=== PATIENT | male | born 1975 | race Caucasian/White ===

== ENCOUNTER 2020-07-05 03:51 | Emergency (ER) | payer BC ==
[2020-07-05 04:07] VITALS: TEMP 97.9
[2020-07-05] MEDS ORDERED: HYDROmorphone 1 MG/ML 1 ML SYRINGE IVP STA (04:20)
[2020-07-05] MEDS ORDERED: ETOMIDATE 2 MG/ML 10 ML VIAL IVP STA (04:20)
--- NOTE | 2020-07-05 04:22 | ED ---
Upper Extremity HPI - General Chief Complaint: Extremity Injury, Upper Stated Complaint: L shoulder injury Time Seen by Provider: 07/05/20 04:05 Source: patient, family Mode of arrival: ambulatory Limitations: no limitations - History of Present Illness Initial Comments: This patient is a 45-year-old man who presents to be evaluated for what he suspects is a shoulder dislocation. The patient states she has had 6 prior shoulder dislocations. He states that he was in bed and then turned she experience pain not able to move the left arm without worse pain. He states that he was previously able to back him but could not tonight. He did apply a shoulder immobilizer that he had at home and then came in for evaluation. MD Complaint: Injury to:: left, shoulder -: minutes(s) Other Injuries: none Handedness: right Place: home Improves With: immobilization Worsens With: movement of extremity Context: other Associated Symptoms: denies other symptoms Treatments Prior to Arrival: splint - Related Data Allergies Allergy/AdvReac Type Severity Reaction Status Date / Time No Known Allergies Allergy Verified 07/05/20 04:07 Review of Systems ROS Statement: Those systems with pertinent positive or pertinent negative responses have been documented in the HPI. ROS Other: All systems not noted in ROS Statement are negative. Constitutional: Denies: fever Respiratory: Denies: cough, dyspnea Cardiovascular: Denies: chest pain, palpitations Gastrointestinal: Denies: abdominal pain Musculoskeletal: Reports: as per HPI, arthralgia. Denies: back pain Neurological: Reports: paresthesias. Denies: weakness, numbness Past Medical History Past Medical History: No Reported History History of Any Multi-Drug Resistant Organisms: None Reported Past Surgical History: No Surgical Hx Reported Past Psychological History: No Psychological Hx Reported Smoking Status: Never smoker Past Alcohol Use History: Rare Past Drug Use History: None Reported General Exam Limitations: no limitations General appearance: alert, in no apparent distress Head exam: Present: atraumatic, normocephalic ENT exam: Present: normal oropharynx Neck exam: Present: full ROM. Absent: tenderness Respiratory exam: Present: normal lung sounds bilaterally. Absent: respiratory distress, wheezes, rales, rhonchi, stridor Cardiovascular Exam: Present: normal rhythm, bradycardia, normal heart sounds. Absent: systolic murmur, diastolic murmur, rubs, gallop GI/Abdominal exam: Present: soft. Absent: distended, tenderness, guarding Left Shoulder Exam: Present: tenderness, dislocation. Absent: full ROM, ecchymosis, crepitus Upper Arm exam: Present: normal inspection. Absent: tenderness, deformity Elbow exam: Present: normal inspection, full ROM. Absent: tenderness, swelling, deformity, tenderness over radial head Forearm Wrist exam: Present: normal inspection, full ROM Hand Wrist exam: Present: normal inspection, full ROM Neuro motor exam: Present: wrist extension intact, thumb opposition intact, thumb IP flexion intact, thumb adduction intact, fingers 2-5 abduction intact Vascular: Present: normal capillary refill, radial pulse (Normal) Neurological exam: Present: alert. Absent: motor sensory deficit Skin exam: Present: warm, dry, intact, normal color. Absent: rash Course Vital Signs 07/05/20 07/05/20 07/05/20 04:04 04:50 04:55 Temperature 97.9 F Pulse Rate 66 40 L 42 L Respiratory 20 16 12 Rate Blood Pressure 160/88 150/98 153/94 O2 Sat by Pulse 98 99 100 Oximetry 07/05/20 05:00 Temperature Pulse Rate 42 L Respiratory 16 Rate Blood Pressure 141/90 O2 Sat by Pulse 100 Oximetry Procedures - Orthopedic Joint Reduction Joint #1 Consent Obtained: written consent Side: left Joint Reduction Location: shoulder Analgesia: procedural sedation Shoulder Technique Used (if applicable): external rotation Post-Reduction Neuro Exam: intact Post-Reduction Vascular Exam: intact Post Reduction X-Ray Obtained: Yes Post Reduction X-Ray Results: reduced Splint Applied: Yes Patient Tolerated Procedure: well, no complications - Procedural Sedation Procedural Sedation Start Time: 04:50 Procedural Sedation Stop Time: 05:05 Indications: fracture/dislocation reduction ASA Class: I Mallampati Airway Score: 3 Preparation: shipping services sales representative applied, pulse oximeter, capnometry used, supplemental O2 applied, suction/airway equipment at bedside, IV secured IV Etomidate Dose (mgs): 14 Complications: none Patient Tolerated Procedure: well, no complications Disposition Clinical Impression: Shoulder dislocation Disposition: HOME SELF-CARE Condition: Good Instructions (If sedation given, give patient instructions): Shoulder Dislocation (ED), Moderate Sedation (ED) Is patient prescribed a controlled substance at d/c from ED?: No Referrals: None,Stated [Primary Care Provider] - 1-2 days Jason Perez MD [STAFF PHYSICIAN] - 1-2 days
--- NOTE | 2020-07-05 04:23 | XR ---
EXAMINATION TYPE: XR shoulder complete LT DATE OF EXAM: 07/05/2020 COMPARISON: NONE HISTORY: Shoulder pain TECHNIQUE: 3 views FINDINGS: There is anterior dislocation of the glenohumeral joint. I see no fracture. The AC joint is intact. IMPRESSION: Anterior shoulder joint dislocation.
--- NOTE | 2020-07-05 05:27 | XR ---
EXAMINATION TYPE: XR shoulder limited LT DATE OF EXAM: 07/05/2020 COMPARISON: NONE HISTORY: Post reduction TECHNIQUE: Single view FINDINGS: There is anatomic reduction of the glenohumeral joint. I see no fracture. IMPRESSION: Anatomic reduction. No complicating process seen.
[2020-07-05 06:07] VITALS: BP 122/83; PULSE 44; RESP 18
== END 2020-07-05 06:12 | disposition home or self-care (01) ==
LOC: EC 03:51
DX: S43.005A Unspecified dislocation of left shoulder joint, initial encounter (principal); X58.XXXA Exposure to other specified factors, initial encounter
CPT/HCPCS: 23650; 96374; 99152; 99283

== ENCOUNTER 2020-07-08 21:38 | Emergency (ER) | payer BC ==
[2020-07-08 21:54] VITALS: TEMP 98.4
[2020-07-08] MEDS ORDERED: HYDROmorphone 0.5 MG/0.5 ML SYRINGE IVP STA (22:22)
--- NOTE | 2020-07-08 22:38 | XR ---
EXAMINATION TYPE: XR shoulder limited LT DATE OF EXAM: 07/08/2020 COMPARISON: 07/05/2020 HISTORY: Dislocation. Pain TECHNIQUE: FINDINGS: 2 views were obtained and show anterior dislocation of the glenohumeral joint. I see no fra cture line. IMPRESSION: Anterior shoulder joint dislocation.
[2020-07-08] MEDS ORDERED: SODIUM CHLORIDE 0.9% 1,000 ML IV STA (22:51)
[2020-07-08] MEDS ORDERED: PROPOFOL 10 MG/ML 20 ML VIAL IV STA (22:51)
--- NOTE | 2020-07-08 23:34 | XR ---
EXAMINATION TYPE: XR shoulder limited LT DATE OF EXAM: 07/08/2020 COMPARISON: Today HISTORY: Post reduction A single view appears to show anatomic reduction of the glenohumeral joint. I see no fracture line. IMPRESSION: Anatomic reduction. No fracture seen.
--- NOTE | 2020-07-08 23:40 | ED ---
Upper Extremity HPI - General Source: patient Mode of arrival: ambulatory Limitations: no limitations <Mar Gilliam - Last Filed: 07/09/20 01:20> <Rosanna Ng - Last Filed: 07/09/20 08:01> - General Chief Complaint: Extremity Injury, Upper Stated Complaint: Revisit-Dislocation of L Shoulder Time Seen by Provider: 07/08/20 22:05 - History of Present Illness Initial Comments: 45-year-old male presents today for chief complaint of left shoulder pain dislocation. Patient states he has dislocated his shoulder 12 8 times throughout his life last time being approximately 4 days ago patient states that he was on the ball today when he went home to go to bed he states that he dislocated his shoulder when lying down. Patient denies any direct falls or trauma. Patient denies additional complaints patient has a numbness tingling or loss of sensation of the extremity. Remaining review of systems negative patient applied sling and presented to the ER (Mar Gilliam) - Related Data Allergies Allergy/AdvReac Type Severity Reaction Status Date / Time No Known Allergies Allergy Verified 07/08/20 21:54 Review of Systems ROS Other: All systems not noted in ROS Statement are negative. <Mar Gilliam - Last Filed: 07/09/20 01:20> ROS Other: All systems not noted in ROS Statement are negative. <Rosanna Ng - Last Filed: 07/09/20 08:01> ROS Statement: Those systems with pertinent positive or pertinent negative responses have been documented in the HPI. Past Medical History Past Medical History: No Reported History Additional Past Medical History / Comment(s): multiple dislocated lt shoulder History of Any Multi-Drug Resistant Organisms: None Reported Past Surgical History: No Surgical Hx Reported Past Psychological History: No Psychological Hx Reported Smoking Status: Never smoker Past Alcohol Use History: Rare Past Drug Use History: None Reported <Mar Gilliam - Last Filed: 07/09/20 01:20> General Exam Limitations: no limitations <Mar Gilliam - Last Filed: 07/09/20 01:20> - General Exam Comments Initial Comments: General: The patient is awake and alert, in no distress Eye: +3 mm pupils are equal, round and reactive to light, extra-ocular movements are intact. No nystagmus. There is normal conjunctiva bilaterally. No signs of icterus. Cardiovascular: There is a regular rate and rhythm. No murmur, rub or gallop is appreciated. Respiratory: Lungs are clear to auscultation, respirations are non-labored, breath sounds are equal. No wheezes, stridor, rales, or rhonchi. Gastrointestinal: Soft, non-distended, non-tender abdomen without masses or organomegaly noted. There is no rebound or guarding present. Musculoskeletal: Obvious anterior deformity of gross examination. Refuses range of motion shoulder secondary to pain to range of motion left elbow and wrist no evidence of wristdrop. Strength 5/5 distal to elbow. Sensation intact. Radial pulses equal bilaterally 2+. Neurological: A&O x 3. CN II-XII intact grossly, There are no obvious motor or sensory deficits. Coordination appears grossly intact. Speech is normal. Skin: Skin is warm and dry and no rashes or lesions are noted. Psychiatric: Cooperative, appropriate mood & affect, normal judgment. (Mar Gilliam) Course Vital Signs 07/08/20 07/08/20 07/08/20 21:52 23:10 23:13 Temperature 98.4 F Pulse Rate 80 72 72 Respiratory 20 16 16 Rate Blood Pressure 135/80 135/114 135/114 O2 Sat by Pulse 99 93 L 93 L Oximetry 07/08/20 07/08/20 07/08/20 23:19 23:24 23:30 Temperature Pulse Rate 70 65 52 L Respiratory 12 12 12 Rate Blood Pressure 126/86 125/91 129/89 O2 Sat by Pulse 98 99 99 Oximetry 07/08/20 07/09/20 07/09/20 23:45 00:00 00:15 Temperature Pulse Rate 60 79 73 Respiratory 16 16 16 Rate Blood Pressure 135/48 138/98 131/99 O2 Sat by Pulse 92 L 92 L 94 L Oximetry Procedures - [place] Protocol (Time Out) Procedure Performed:: relocation of left shoulder Performing Provider: Rosanna Ng Nurse: Viviana Horowitz Patient Identification (2 identifiers required): Chart, Verbal, Arm Band, Name, Birthdate Patient/Legal Chrome Worker has Confirmed: Identity, Site, Procedure, Consent Site: left shoulder Site Marked: Yes Site Verified With Patient/Guardian: Yes Final Confirmation: Site - Orthopedic Joint Reduction Joint #1 Consent Obtained: verbal consent Side: left Joint Reduction Location: shoulder Analgesia: procedural sedation Shoulder Technique Used (if applicable): traction/counter-traction, Milch Post-Reduction Neuro Exam: intact Post-Reduction Vascular Exam: intact Post Reduction X-Ray Obtained: Yes Post Reduction X-Ray Results: reduced Splint Applied: Yes (sling) Patient Tolerated Procedure: well, no complications <Mar Gilliam - Last Filed: 07/09/20 01:20> - Procedural Sedation Procedural Sedation Start Time: 23:50 Procedural Sedation Stop Time: 00:20 Indications: fracture/dislocation reduction ASA Class: I Mallampati Airway Score: 1 Preparation: charge master coordinator applied, pulse oximeter, capnometry used, supplemental O2 applied, reversal agents at bedside, suction/airway equipment at bedside, IV secured IV Propofol Dose (mgs): 130 Complications: none Patient Tolerated Procedure: well, no complications <Rosanna Ng - Last Filed: 07/09/20 08:01> Medical Decision Making <Mar Gilliam - Last Filed: 07/09/20 01:20> - Medical Decision Making 45-year-old male presenting for left shoulder dislocation. X-ray revealed dislocation. After procedural sedation patient shoulder anatomically reduced, pain controlled. Patient placed in sling. Patient is neurovascularly intact both prior to and after reduction. Patient evaluated and sedation was performed by attending Dr. Ng. (Mar Gilliam) Disposition Is patient prescribed a controlled substance at d/c from ED?: No Time of Disposition: 23:40 <Mar Gilliam - Last Filed: 07/09/20 01:20> <Rosanna Ng - Last Filed: 07/09/20 08:01> Clinical Impression: Recurrent dislocation, left shoulder Disposition: HOME SELF-CARE Condition: Good Instructions (If sedation given, give patient instructions): Shoulder Dislocation (ED), Moderate Sedation (ED) Additional Instructions: Please use medication as discussed. Please follow[facility]up with [facility] in the next 2-3 days Please return to emergency room if the symptoms increase or worsen or for any other concerns. Referrals: None,Stated [Primary Care Provider] - 1-2 days Harry Hill DO [Medical Doctor] - 1-2 days
[2020-07-09 00:04] VITALS: RESP 16
[2020-07-09 00:21] VITALS: BP 131/99; PULSE 73
== END 2020-07-09 00:23 | disposition home or self-care (01) ==
LOC: EC 21:38
DX: M24.412 Recurrent dislocation, left shoulder (principal)
CPT/HCPCS: 99283; 23650; 99152; 99153; 73020; 96374; 96375; 96361; J2704; J1170

== ENCOUNTER 2021-01-11 19:52 | Emergency (ER) | payer BC ==
[2021-01-11 19:57] VITALS: PULSE 62; RESP 18; TEMP 98.4
--- NOTE | 2021-01-11 20:36 | CT ---
EXAMINATION TYPE: CT brain wo con DATE OF EXAM: 01/11/2021 COMPARISON: None available. HISTORY: headaches and dizziness CT DLP: 1086.4 mGycm. Automated Exposure Control for Dose Reduction was Utilized. TECHNIQUE: CT scan of the head is performed without contrast. FINDINGS: There is no acute intracranial hemorrhage, mass effect, or midline shift identified. The ventricles and sulci are within normal limits in size. The globes are intact and the visualized sin uses are clear. IMPRESSION: No acute intracranial hemorrhage, mass effect, or midline shift is seen.
[2021-01-11 21:10] VITALS: BP 146/99
--- NOTE | 2021-01-11 21:13 | ED ---
Headache HPI - General Chief Complaint: Headache Stated Complaint: Dizziness Time Seen by Provider: 01/11/21 20:02 Mode of arrival: ambulatory Limitations: no limitations - History of Present Illness Initial Comments: This 45-year-old male presents with a complaint of a headache. It initially started 3 weeks ago and has been intermittent. He states that it is primarily in the right posterior region. It came on gradually. He initially had some slight phonophobia and photophobia. He relates that it is at the right suboccipital region. There is no previous history of headaches or migraines. He states that his blood pressures been slightly elevated at the urgent care prior to arrival. He states that he's had slight dizziness intermittently over the last couple of weeks as well. He denies any other complaints or modifying factors. - Related Data Allergies Allergy/AdvReac Type Severity Reaction Status Date / Time No Known Allergies Allergy Verified 01/11/21 19:57 Review of Systems ROS Statement: Those systems with pertinent positive or pertinent negative responses have been documented in the HPI. ROS Other: All systems not noted in ROS Statement are negative. Past Medical History Past Medical History: No Reported History Additional Past Medical History / Comment(s): multiple dislocated lt shoulder History of Any Multi-Drug Resistant Organisms: None Reported Past Surgical History: No Surgical Hx Reported Past Psychological History: No Psychological Hx Reported Smoking Status: Light tobacco smoker Past Alcohol Use History: Rare Past Drug Use History: None Reported General Exam - General Exam Comments Initial Comments: Constitutional: Alert and oriented, no apparent distress Vitals: Reviewed, please see nursing notes HEENT: No gross trauma identified, trachea midline, no respiratory distress Neck: No tenderness, good range of motion Heart: Regular rate and rhythm without murmur Lungs: Clear to auscultation bilaterally, no wheezing rhonchi or rales Abdomen: No tenderness or peritoneal signs noted, nondistended Back: No tenderness Neurologic: No gross sensory or motor deficits identified Integumentary: No rash or change in pigmentation Psychiatric: Alert and oriented, appropriate mood and affect Limitations: no limitations Course Vital Signs 01/11/21 01/11/21 19:55 20:45 Temperature 98.4 F Pulse Rate 62 Respiratory 18 Rate Blood Pressure 207/120 158/109 O2 Sat by Pulse 97 Oximetry Medical Decision Making - Medical Decision Making The patient was seen and examined. A computed tomography scan of the brain was done and does not show any acute abnormalities per radiology. He is not currently having any pain. It is not felt as though he requires any medication at this time. His blood pressure initially was high but he apparently was anxious coming in and it has come down significantly since that time. It is not felt as though any treatment is necessary in this regard at this time. He is instructed to do a five-day blood pressure recheck at home and follow-up with his primary care physician in this regard. If his symptoms do persist he is also instructed to follow-up with a neurologist. He potentially may need a rate about occipital block and his symptoms reoccur or worsen as he may have a suboccipital neuralgia. Return parameters are discussed. Disposition Clinical Impression: Hypertension, Headache Disposition: HOME SELF-CARE Condition: Good Instructions (If sedation given, give patient instructions): Acute Headache (ED), Hypertension (ED) Additional Instructions: Please take Tylenol and/or Motrin if needed for pain. Is patient prescribed a controlled substance at d/c from ED?: No Referrals: None,Stated [Primary Care Provider] - 1-2 days Time of Disposition: 21:12
== END 2021-01-11 21:18 | disposition home or self-care (01) ==
LOC: EC 19:52
DX: I10 Essential (primary) hypertension (principal); R51.9 Headache, unspecified; R42 Dizziness and giddiness; F17.210 Nicotine dependence, cigarettes, uncomplicated
CPT/HCPCS: 70450; 99284

== ENCOUNTER → 2021-08-12 | Outpatient (CLI) | payer BC ==
--- NOTE | 2021-08-12 12:00 | XR ---
EXAMINATION TYPE: XR lumbar spine 2 or 3V DATE OF EXAM: 08/12/2021 COMPARISON: None HISTORY: Spinal stenosis TECHNIQUE: 3 view lumbar spine FINDINGS: There are 5 lumbar-type vertebral bodies. Pedicles are intact. Disc heights are preserved. Vertebral body heights are preserved. Alignment is normal. IMPRESSION: 1. Normal three-view lumbar spine
== END | disposition home or self-care (01) ==
LOC: RADXRMAIN 11:40
PROVIDERS: ATTEND Family Medicine
DX: M48.061 Spinal stenosis, lumbar region without neurogenic claudication (principal)
CPT/HCPCS: 72100

== ENCOUNTER 2023-07-20 19:44 | Emergency (ER) | payer BC ==
[2023-07-20 19:57] VITALS: BP 150/96; PULSE 63; RESP 18; TEMP 97.9
[2023-07-20] MEDS ORDERED: PROPARACAINE 0.5% OPHTH DROPS 15 ML BTL LEFT EYE STA (20:28)
[2023-07-20] MEDS ORDERED: FLUORESCEIN STRIPS 1 MG STRIP LEFT EYE ONE (20:28)
[2023-07-20] MEDS ORDERED: TOBRAMYCIN 0.3% OPHTH DROPS 5 ML BTL LEFT EYE STA (22:08)
--- NOTE | 2023-07-20 22:09 | ED ---
Eye Problem HPI - General Source: patient Mode of arrival: ambulatory Limitations: no limitations <Johny Wright - Last Filed: 07/20/23 22:08> - General Source: patient Mode of arrival: ambulatory Limitations: no limitations <Lizzy Young - Last Filed: 07/20/23 23:23> - General Chief complaint: Eye Problems Stated complaint: Foreign object in left eye Time Seen by Provider: 07/20/23 20:15 - History of Present Illness Initial comments: 48-year-old male presents emergency department chief complaint of left eye pain. He states that he was seen at urgent care earlier today and was told that he had a foreign body in his eye. They attempted removal of cotton swab at or unsuccessful. They advised him to come to the emergency department or follow-up with ophthalmology tomorrow. He states that he believes that he has a foreign body in his eye yesterday while he was working on his vehicle. He states that he could be metal but he is unsure. (Lizzy Young) - Related Data Allergies Allergy/AdvReac Type Severity Reaction Status Date / Time No Known Allergies Allergy Verified 07/20/23 19:57 Review of Systems ROS Other: All systems not noted in ROS Statement are negative. <Johny Wright - Last Filed: 07/20/23 22:08> ROS Other: All systems not noted in ROS Statement are negative. <Lizzy Young - Last Filed: 07/20/23 23:23> ROS Statement: Those systems with pertinent positive or pertinent negative responses have been documented in the HPI. Past Medical History Past Medical History: Hypertension Additional Past Medical History / Comment(s): multiple dislocated lt shoulder History of Any Multi-Drug Resistant Organisms: None Reported Past Surgical History: No Surgical Hx Reported Past Psychological History: No Psychological Hx Reported Smoking Status: Light tobacco smoker Past Alcohol Use History: Rare Past Drug Use History: None Reported <Johny Wright - Last Filed: 07/20/23 22:08> General Exam Limitations: no limitations <Johny Wright - Last Filed: 07/20/23 22:08> Limitations: no limitations General appearance: alert, in no apparent distress Head exam: Present: atraumatic, normocephalic, normal inspection Eye exam: Present: PERRL, EOMI, conjunctival injection (Left), other (Visible foreign body over the left cornea). Absent: nystagmus, periorbital swelling, periorbital tenderness ENT exam: Present: normal exam, mucous membranes moist Neck exam: Present: normal inspection. Absent: tenderness, meningismus, lymphadenopathy Respiratory exam: Present: normal lung sounds bilaterally. Absent: respiratory distress, wheezes, rales, rhonchi, stridor Cardiovascular Exam: Present: regular rate, normal rhythm, normal heart sounds. Absent: systolic murmur, diastolic murmur, rubs, gallop, clicks Extremities exam: Present: normal inspection, full ROM, normal capillary refill. Absent: tenderness, pedal edema, joint swelling, calf tenderness Back exam: Present: normal inspection Neurological exam: Present: alert, oriented X3 Psychiatric exam: Present: normal affect, normal mood Skin exam: Present: warm, dry, intact, normal color. Absent: rash <Lizzy Young - Last Filed: 07/20/23 23:23> Course Vital Signs 07/20/23 19:55 Temperature 97.9 F Pulse Rate 63 Respiratory 18 Rate Blood Pressure 150/96 O2 Sat by Pulse 98 Oximetry Medical Decision Making <Lizzy Young - Last Filed: 07/20/23 23:23> - Medical Decision Making Was pt. sent in by a medical professional or institution (CARLYN Kumar, RE[employer] [employer]ISON, urgent care, hospital, or half-way...) When possible be specific @ -Patient was sent in by urgent care Did you speak to anyone other than the patient for history (EMS, parent, family, police, friend...)? What history was obtained from this source @ -No Did you review nursing and triage notes (agree or disagree)? Why? @ -I reviewed and agree with nursing and triage notes Were old charts reviewed (outside hosp., previous admission, EMS record, old EKG, old radiological studies, urgent care reports/EKG's, half-way records)? Report findings @ -No old charts were reviewed Differential Diagnosis (chest pain, altered mental status, abdominal pain women, abdominal pain men, vaginal bleeding, weakness, fever, dyspnea, syncope, headache, dizziness, GI bleed, back pain, seizure, CVA, palpatations, mental health, musculoskeletal)? @ -Corneal foreign body, corneal abrasion, conjunctivitis, iritis, this list is not all-inclusive EKG interpreted by me (3pts min.). @ -None X-rays interpreted by me (1pt min.). @ -None done CT interpreted by me (1pt min.). @ -None done U/S interpreted by me (1pt. min.). @ -None done What testing was considered but not performed or refused? (CT, X-rays, U/S, labs)? Why? @ -None What meds were considered but not given or refused? Why? @ -None Did you discuss the management of the patient with other professionals (professionals i.e. Dr., PA, REVENUE LIAISON, lab, RT, psych nurse, social media assistant, smeller, teacher, custody officer, director case management)? Give summary @ -No Was smoking cessation discussed for >3mins.? @ -No Was critical care preformed (if so, how long)? @ -No Were there social determinants of health that impacted care today? How? (Homelessness, low income, unemployed, alcoholism, drug addiction, transportation, low edu. Level, literacy, decrease access to med. care, long-term, rehab)? @ -No Was there de-escalation of care discussed even if they declined (Discuss DNR or withdrawal of care, Hospice)? DNR status @ -No What co-morbidities impacted this encounter? (DM, HTN, Smoking, COPD, CAD, Cancer, CVA, ARF, Chemo, Hep., AIDS, mental health diagnosis, sleep apnea, morbid obesity)? @ -None Was patient admitted / discharged? Hospital course, mention meds given and route, prescriptions, significant lab abnormalities, going to OR and other pertinent info. @ -discharged. Patient presented to emergency department chief complaint of left eye foreign body that occurred yesterday. He was evaluated at urgent care who sent him to the emergency department for further evaluation. Fluorescein staining was performed and there is a visible foreign body over the cornea of the left eye. Removal was attempted with a cotton swab. Patient was given tobr amycin eyedrops to be used 4 times a day and Patient will follow up with Ophthalmology tomorrow. Patient stable at discharge. Case discussed my attending, Dr. Wright, who evaluated the patient and attempted foreign body removal. Undiagnosed new problem with uncertain prognosis? @ -No Drug Therapy requiring intensive monitoring for toxicity (Heparin, Nitro, Insulin, Cardizem)? @ -No Were any procedures done? @ -No Diagnosis/symptom? @ -corneal foreign body Acute, or Chronic, or Acute on Chronic? @ -acute Uncomplicated (without systemic symptoms) or Complicated (systemic symptoms)? @ -uncomplicated Side effects of treatment? @ -No Exacerbation, Progression, or Severe Exacerbation? @ -No Poses a threat to life or bodily function? How? (Chest pain, [place], OR, pneumonia, PE, COPD, DKA, ARF, appy, cholecystitis, CVA, Diverticulitis, Homicidal, Suicidal, threat to staff... and all critical care pts) @ -No (Lizzy Young) Disposition Is patient prescribed a controlled substance at d/c from ED?: No <Johny Wright - Last Filed: 07/20/23 22:08> Is patient prescribed a controlled substance at d/c from ED?: No <Lizzy Young - Last Filed: 07/20/23 23:23> Clinical Impression: Corneal abrasion, Eye foreign body Disposition: HOME SELF-CARE Condition: Fair Additional Instructions: Please instill 2 drops every 6 hours for 5 days. Follow up with ophthalmology. Return to the emergency department for new or worsening symptoms. Referrals: Leonie Kang MD [STAFF PHYSICIAN] - 1-2 days Jorge Luis Gant MD [STAFF PHYSICIAN] - 1-2 days Matt Quijano MD [STAFF PHYSICIAN] - 1-2 days
== END 2023-07-20 22:49 | disposition home or self-care (01) ==
LOC: EC 19:44
DX: T15.02XA Foreign body in cornea, left eye, initial encounter (principal); I10 Essential (primary) hypertension
CPT/HCPCS: 99283